=== PATIENT | female | born 1960 | race Caucasian/White ===

== ENCOUNTER → 2021-07-07 | Outpatient (CLI) | payer BC ==
--- NOTE | 2021-07-07 13:53 | KCIC ---
EXAM: Left ankle, 3 views. HISTORY: Pain and swelling. Fall. COMPARISON: None. FINDINGS: 3 views of the left ankle are obtained. No acute fracture is seen. The ankle mortise is int act. There is no osteochondral lesion. There is diffuse ankle soft tissue swelling. There is a small plantar spur. IMPRESSION: Diffuse ankle swelling. No acute osseous finding. Electronically signed by: Ariana Trevino MD (07/07/2021 1:51 PM) [id number]
== END ==
LOC: KCIC 13:25
PROVIDERS: ATTEND Nurse Practitioner Family
DX: M25.472 Effusion, left ankle (principal); M77.32 Calcaneal spur, left foot
CPT/HCPCS: 73610